=== PATIENT | female | born 1955 | race Caucasian/White ===

== ENCOUNTER 2022-04-01 08:46 | Inpatient (IN) | payer BC ==
[2022-04-01] VITALS (21 sets, daily range): BP systolic 124–227; BP diastolic 62–103
[~2022-04-01] VITALS: Ht 162.6 cm; Wt 63.6 kg
[2022-04-01 12:04] LABS: BASOPHILS % (AUTO) 0.1 % (0-1); EOSINOPHILS # (AUTO) 0.1 X10'3 (0-0.9); EOSINOPHILS % (AUTO) 0.5 % (0-6); HEMATOCRIT 34.1 % (35.0-45.0); LYMPHOCYTES # (AUTO) 0.6 X10'3 (1.1-4.8); MEAN CORPUSCULAR HEMOGLOBIN 25.7 PG (27.0-31.0); MEAN CORPUSCULAR HGB CONC 32.2 g/dL (33.0-36.5); MEAN CORPUSCULAR VOLUME 79.8 FL (78-98); MONOCYTES # (AUTO) 1.4 X10'3 (0-0.9); MONOCYTES % (AUTO) 8.9 % (2-12); NEUTROPHILS # (AUTO) 13.2 X10'3 (1.8-7.7); NEUTROPHILS % (AUTO) 86.5 % (42-75); PLATELET COUNT 337 X10'3 (140-440); RED BLOOD COUNT 4.27 X10'6 (4.20-5.60); RED CELL DISTRIBUTION WIDTH 19.3 % (11.5-14.5); WHITE BLOOD COUNT 15.3 X10'3 (4.5-11.0)
[2022-04-01 12:13] LABS: ALANINE AMINOTRANSFERASE 12 U/L (12-78); ALBUMIN 2.5 G/DL (3.4-5.0); ALBUMIN/GLOBULIN RATIO 0.5 (1.1-1.5); ALKALINE PHOSPHATASE 138 IU/L (46-116); ANION GAP 12 (8-16); ASPARTATE AMINO TRANSFERASE 17 U/L (10-37); BILIRUBIN,TOTAL 0.6 MG/DL (0.1-1.0); BLOOD UREA NITROGEN 30 MG/DL (7-18); BUN/CREATININE RATIO 19.9 (6.6-38.0); CALCIUM 9.6 MG/DL (8.5-10.1); CHLORIDE 90 MMOL/L (99-107); CREATININE 1.51 MG/DL (0.40-0.90); GLUCOSE 107 MG/DL (70-104); SODIUM 131 MMOL/L (135-145); TOTAL CARBON DIOXIDE 28.8 MMOL/L (24-32); TOTAL PROTEIN 7.7 G/DL (6.4-8.2); eGFR 35 ML/MIN
[2022-04-01] MEDS ORDERED: potassium Cl 20 mEq SR tablet PO STA (12:20)
[2022-04-01] MEDS ORDERED: potassium Cl 10 mEq/100mL bag IV ONE (12:23)
[2022-04-01] MEDS ORDERED: normal saline 1000ML IV soln IV ONE (12:25)
[2022-04-01] MEDS ORDERED: ondansetron/PF 4mg/2ml inj IV ONE (12:25)
[2022-04-01] MEDS: morphine 4 MG/ML inj SYRINge IV PRN ×2 (13:09→17:02)
[2022-04-01 13:28] LABS: URINE HCG NEGATIVE (NEG)
[2022-04-01 13:33] LABS: COLOR,URINE YELLOW (Yellow); GLUCOSE, URINE NEGATIVE (Neg); KETONES,URINE TRACE mg/dl (Neg); LEUKOCYTE ESTERASE ,URINE NEGATIVE (Neg); NITRITES, URINE NEGATIVE (Neg); OCCULT BLOOD,URINE MODERATE (Neg); PH,URINE 5.5 (4.8-8.0); PROTEIN,URINE 30 mg/dl (Neg); UROBILINOGEN,URINE 0.2 E.U/dL (0.2-1.0)
[2022-04-01 13:35] LABS: CLARITY,URINE SLIGHTLY CLOUDY (Clear); UA COLLECTION TYPE CLN CATCH MIDSTREAM
[2022-04-01] MEDS ORDERED: piperacillin/tazo 3.375gm/50ml 50 ML IV ONE (13:35)
[2022-04-01 13:44] LABS: BACTERIA,URINE 3+ /HPF (Neg)
[2022-04-01 13:46] LABS: SQUAMOUS EPITHELIAL CELL,UR NONE SEEN /LPF (FEW)
[2022-04-01 13:47] LABS: TRANSITIONAL EPI CELLS,URINE FEW /HPF
[2022-04-01 14:07] LABS: PLATELET ESTIMATE NORMAL; TOTAL CELLS COUNTED 100
[2022-04-01 14:08] LABS: ANISOCYTOSIS 2+; MICROCYTOSIS 1+
[2022-04-01] MEDS ORDERED: labetalol 20mg/4ml (5mg/ml) syringe IV PRN (14:20)
[2022-04-01] MEDS ORDERED: fentaNYL/PF 50MCG/1 ML 2ML syringe IV PRN ×2 (14:20)
[2022-04-01] MEDS ORDERED: ondansetron/PF 4mg/2ml inj IV PRN ×2 (14:20→16:20)
[2022-04-01] MEDS ORDERED: ringers solution, lacted 1,000 ML IV SCH (14:20)
[2022-04-01] MEDS ORDERED: morphine 2 MG/ML inj. syringe IV PRN (14:20)
[2022-04-01] MEDS ORDERED: hydrALAZINE 20mg/ml inj. IV PRN (14:20)
[2022-04-01] MEDS ORDERED: ringers solution, lacted 1,000 ML IV ONE (14:20)
[2022-04-01] MEDS ORDERED: morphine 4 MG/ML inj SYRINge IV PRN (14:20)
[2022-04-01] MEDS ORDERED: BUPIVAcaine/PF 2.5 mg/ml (0.25%) 30ml vial ONE (14:24)
--- NOTE | 2022-04-01 14:27 | NUR ---
REPORT GIVEN TO SURGICAL CHARGE ELIANA. OR TECH AT BEDSIDE TO MEDICAL COLLECTOR PATIENT.
[2022-04-01] MEDS ORDERED: fentaNYL/PF 50MCG/1 ML 2ML syringe ONE ×2 (15:13→16:18)
[2022-04-01] MEDS ORDERED: sevoflurane 250ml liquid IH ONE (15:14)
[2022-04-01] MEDS ORDERED: LIDOcaine 2% (20mg/ml) 5ml vial ONE (15:16)
[2022-04-01] MEDS ORDERED: propofol inj 20 ML IV ONE (15:16)
[2022-04-01] MEDS ORDERED: rocuronium 10mg/ml inj IV ONE (15:19)
[2022-04-01] MEDS ORDERED: midazolam 1 mg/ML 2ml injection ONE (15:22)
[2022-04-01] MEDS ORDERED: dexamethasone sod phosphate 4mg/ml inj. ONE (15:29)
[2022-04-01] MEDS ORDERED: glycopyrrolate 0.2mg/ml inj ONE (15:31)
[2022-04-01] MEDS ORDERED: neostigmine methylsulfate 1 MG/ML 10ml vial ONE (15:31)
[2022-04-01] MEDS ORDERED: ondansetron/PF 4mg/2ml inj ONE (15:31)
[2022-04-01] MEDS ORDERED: potassium CL 10mEq/100ml bag 100 ML IV PRN (16:20)
[2022-04-01] MEDS ORDERED: acetaminophen 650mg rectal suppository RC PRN (16:20)
[2022-04-01] MEDS ORDERED: magnesium 2GM in 50ml NS 50 ML IV PRN (16:20)
[2022-04-01] MEDS ORDERED: HYDROmorphone inj. 0.5 MG/0.5 ML DISP.SYRIN IV PRN (16:20)
[2022-04-01] MEDS ORDERED: HYDROmorphone/PF 0.2 MG/ML SYRINGE IV PRN (16:20)
[2022-04-01] MEDS ORDERED: magnesium hydroxide 30ml (MOM) UD suspension PO PRN (16:20)
[2022-04-01] MEDS ORDERED: mag hydrox/Alum hydrox/simeth 30ml oral suspension PO PRN (16:20)
[2022-04-01] MEDS ORDERED: bisacodyl 10mg suppository rectal RC PRN (16:20)
[2022-04-01] MEDS ORDERED: ondansetron 4mg rapidly disintigrating tab PO PRN (16:20)
[2022-04-01] MEDS ORDERED: magnesium 4gm in 100ml NS 100 ML IV PRN (16:20)
[2022-04-01] MEDS ORDERED: POTASSIUM BICARB 20meq eff tab 20 MEQ TABLET.EFF PO PRN (16:20)
[2022-04-01] MEDS ORDERED: acetaminophen 325mg tablet PO PRN ×2 (16:20)
[2022-04-01] MEDS ORDERED: magnesium Cl slow-release 64mg tablet PO PRN (16:20)
[2022-04-01] MEDS ORDERED: HYDROcodone/acetaminophen 5mg/325mg tablet PO PRN (16:20)
[2022-04-01 16:51] LABS: MAGNESIUM 2.7 MG/DL (1.5-2.4)
--- NOTE | 2022-04-01 16:57 | NUR ---
Received from OR via HOSPITAL BED, accompanied by Anesthesiologist and report given by GENARO Anesthesiologist. PATIENT WAKING UP, ABDOMEN PAIN OF 7/10 NOTED-WILL MEDICATE, INCREASED BP AND HR, SCD ON , PIV 20G RAC, STERISTRIPS AND ISLAND DRESSING C/D/I TO ABDOMEN. KEVIN DRAINING SEROSANGUINEOUS FLUID. Addendum: 04/01/22 at 1746 by Cj Ruby RN Amended: Links added.
[2022-04-01] MEDS: normal saline 1000ml 1,000 ML IV SCH (18:20)
--- NOTE | 2022-04-01 18:57 | NUR ---
PATIENT HAS MET ALL CRITERIA FOR TRANSFER TO ORTHO FLOOR. VSS. DRESSINGS INTACT. BED LOW, CALL LIGHT PRESENT AND 2 RAILS UP. RN PRESENT TO ACCEPT CARE OF PATIENT AND REPORT HAS BEEN CALLED. ALL QUESTIONS ANSWERED TO ACCEPTING RN. Addendum: 04/01/22 at 1902 by Cj Ruby RN Amended: Links added.
[2022-04-01] MEDS: docusate sod 100mg capsule PO SCH (20:00)
[2022-04-01] MEDS ORDERED: temazepam 15mg capsule PO PRN (21:00)
[2022-04-01] MEDS: K and/or MAG REPLACEMENT MC SCH (21:12)
[2022-04-01] MEDS: piperacillin/tazo 3.375gm/50ml 50 ML IV SCH (23:26)
[2022-04-02] MEDS: HYDROcodone/acetaminophen 10/325mg tab PO PRN ×4 (01:48→21:45)
[2022-04-02 02:00] VITALS: BP 176/72
[2022-04-02] MEDS ORDERED: NO HOME MEDS (02:46)
[2022-04-02 06:00] VITALS: BP 141/79
[2022-04-02 06:08] LABS: BASOPHILS % (AUTO) 0 % (0-1); EOSINOPHILS % (AUTO) 0.5 % (0-6); HEMATOCRIT 29.4 % (35.0-45.0); HEMOGLOBIN 9.7 g/dl (12.0-16.0); LYMPHOCYTES # (AUTO) 0.3 X10'3 (1.1-4.8); LYMPHOCYTES % (AUTO) 3.8 % (21-51); MEAN CORPUSCULAR HEMOGLOBIN 26.2 PG (27.0-31.0); MEAN CORPUSCULAR HGB CONC 32.8 g/dL (33.0-36.5); MEAN CORPUSCULAR VOLUME 79.7 FL (78-98); MEAN PLATELET VOLUME 7.7 FL (7.4-10.4); NEUTROPHILS # (AUTO) 7.5 X10'3 (1.8-7.7); NEUTROPHILS % (AUTO) 84.7 % (42-75); PLATELET COUNT 330 X10'3 (140-440); RED BLOOD COUNT 3.69 X10'6 (4.20-5.60); RED CELL DISTRIBUTION WIDTH 19.6 % (11.5-14.5); WHITE BLOOD COUNT 8.9 X10'3 (4.5-11.0)
[2022-04-02 06:13] LABS: ALANINE AMINOTRANSFERASE 11 U/L (12-78); ALBUMIN 1.9 G/DL (3.4-5.0); ALBUMIN/GLOBULIN RATIO 0.4 (1.1-1.5); ALKALINE PHOSPHATASE 111 IU/L (46-116); ANION GAP 9 (8-16); ASPARTATE AMINO TRANSFERASE 12 U/L (10-37); BILIRUBIN,TOTAL 0.5 MG/DL (0.1-1.0); BLOOD UREA NITROGEN 20 MG/DL (7-18); BUN/CREATININE RATIO 16.5 (6.6-38.0); CALCIUM 8.5 MG/DL (8.5-10.1); CHLORIDE 100 MMOL/L (99-107); CREATININE 1.21 MG/DL (0.40-0.90); GLUCOSE 134 MG/DL (70-104); MAGNESIUM 2.1 MG/DL (1.5-2.4); POTASSIUM 3.7 MMOL/L (3.5-5.1); SODIUM 137 MMOL/L (135-145); TOTAL CARBON DIOXIDE 28.2 MMOL/L (24-32); TOTAL PROTEIN 6.3 G/DL (6.4-8.2); eGFR 45 ML/MIN
--- NOTE | 2022-04-02 06:23 | NUR ---
Patient in room ORTHO 4024. I have received report from SHAYNE Garrido and had the opportunity to ask questions and assume patient care.
[2022-04-02] MEDS: K and/or MAG REPLACEMENT MC SCH ×2 (07:47→21:06)
[2022-04-02] MEDS: docusate sod 100mg capsule PO SCH ×2 (07:49→19:41)
[2022-04-02] MEDS: normal saline 1000ml 1,000 ML IV SCH ×2 (07:49→12:20)
[2022-04-02] MEDS: piperacillin/tazo 3.375gm/50ml 50 ML IV SCH ×2 (07:49→16:16)
[2022-04-02 10:00] VITALS: BP 142/80
[2022-04-02 18:00] VITALS: BP 162/72
--- NOTE | 2022-04-02 18:00 | NUR ---
Patient in room ORTHO 4024. I have received report from SHAYNE Parker and had the opportunity to ask questions and assume patient care.
--- NOTE | 2022-04-02 18:48 | NUR ---
Problems reprioritized. Patient report given, questions answered & plan of care reviewed with SHAYNE Beavers.
[2022-04-02] MEDS: enoxaparin 40mg/0.4ml syringe SUBCUT SCH (19:42)
[2022-04-02 22:00] VITALS: BP 176/81
[2022-04-03] MEDS: normal saline 1000ml 1,000 ML IV SCH ×2 (00:40→08:25)
[2022-04-03] MEDS: piperacillin/tazo 3.375gm/50ml 50 ML IV SCH ×4 (00:41→23:56)
[2022-04-03 05:53] LABS: BASOPHILS % (AUTO) 0.1 % (0-1); EOSINOPHILS % (AUTO) 0.1 % (0-6); HEMATOCRIT 28.4 % (35.0-45.0); HEMOGLOBIN 9.2 g/dl (12.0-16.0); LYMPHOCYTES # (AUTO) 1.1 X10'3 (1.1-4.8); LYMPHOCYTES % (AUTO) 9.4 % (21-51); MEAN CORPUSCULAR HEMOGLOBIN 25.8 PG (27.0-31.0); MEAN CORPUSCULAR HGB CONC 32.2 g/dL (33.0-36.5); MEAN CORPUSCULAR VOLUME 79.9 FL (78-98); MEAN PLATELET VOLUME 7.3 FL (7.4-10.4); MONOCYTES # (AUTO) 1.4 X10'3 (0-0.9); NEUTROPHILS # (AUTO) 9.4 X10'3 (1.8-7.7); NEUTROPHILS % (AUTO) 78.4 % (42-75); PLATELET COUNT 392 X10'3 (140-440); RED BLOOD COUNT 3.56 X10'6 (4.20-5.60); RED CELL DISTRIBUTION WIDTH 19.8 % (11.5-14.5)
[2022-04-03 06:00] VITALS: BP 184/90
[2022-04-03 06:07] LABS: ALANINE AMINOTRANSFERASE 10 U/L (12-78); ALBUMIN 1.8 G/DL (3.4-5.0); ALBUMIN/GLOBULIN RATIO 0.4 (1.1-1.5); ALKALINE PHOSPHATASE 100 IU/L (46-116); ANION GAP 5 (8-16); ASPARTATE AMINO TRANSFERASE 15 U/L (10-37); BILIRUBIN,TOTAL 0.3 MG/DL (0.1-1.0); BLOOD UREA NITROGEN 20 MG/DL (7-18); BUN/CREATININE RATIO 18.7 (6.6-38.0); CALCIUM 8.3 MG/DL (8.5-10.1); CHLORIDE 101 MMOL/L (99-107); CREATININE 1.07 MG/DL (0.40-0.90); GLUCOSE 113 MG/DL (70-104); MAGNESIUM 2.4 MG/DL (1.5-2.4); POTASSIUM 3.2 MMOL/L (3.5-5.1); SODIUM 139 MMOL/L (135-145); TOTAL CARBON DIOXIDE 32.8 MMOL/L (24-32); TOTAL PROTEIN 6.1 G/DL (6.4-8.2); eGFR 52 ML/MIN
--- NOTE | 2022-04-03 06:22 | NUR ---
Problems reprioritized. Patient report given, questions answered & plan of care reviewed with SHAYNE Reinoso.
--- NOTE | 2022-04-03 06:37 | NUR ---
Patient in room ORTHO 4024. I have received report from SHAYNE Beavers and had the opportunity to ask questions and assume patient care.
[2022-04-03] MEDS: K and/or MAG REPLACEMENT MC SCH ×2 (08:00→20:00)
[2022-04-03] MEDS: docusate sod 100mg capsule PO SCH ×2 (08:23→21:24)
[2022-04-03] MEDS: POTASSIUM BICARB 20meq eff tab 20 MEQ TABLET.EFF PO PRN ×2 (08:24→12:46)
[2022-04-03 10:00] VITALS: BP 164/86
[2022-04-03] MEDS: hydrALAZINE 20mg/ml inj. IV PRN ×2 (11:11→17:07)
[2022-04-03] MEDS: HYDROcodone/acetaminophen 10/325mg tab PO PRN (15:05)
--- NOTE | 2022-04-03 17:25 | NUR ---
Notified Dr. Lam of high BP. Dr. Lam said SBP 160-170 is OK.
--- NOTE | 2022-04-03 17:30 | NUR ---
PAGER ID: [phone] MESSAGE: Caroline [id number] RE: Alena Walters room 4024A - BP still elevated after first dose of hydralazine. Gave another dose of hydralazine
[2022-04-03] MEDS ORDERED: amLODIPine 5mg tablet PO ONE (17:40)
[2022-04-03 18:00] VITALS: BP 168/82
--- NOTE | 2022-04-03 18:40 | NUR ---
Problems reprioritized. Patient report given, questions answered & plan of care reviewed with SHAYNE Bolanos.
[2022-04-03] MEDS: enoxaparin 40mg/0.4ml syringe SUBCUT SCH (21:27)
[2022-04-03 22:00] VITALS: BP_SYST 156; BP_SYST 177; BP_DIAS 78; BP_DIAS 85
[2022-04-04] MEDS: hydrALAZINE 20mg/ml inj. IV PRN (05:18)
[2022-04-04] MEDS: normal saline 1000ml 1,000 ML IV SCH ×2 (06:00→11:51)
[2022-04-04 06:44] LABS: BASOPHILS % (AUTO) 0.1 % (0-1); EOSINOPHILS % (AUTO) 0.2 % (0-6); HEMATOCRIT 27.5 % (35.0-45.0); HEMOGLOBIN 8.7 g/dl (12.0-16.0); LYMPHOCYTES # (AUTO) 1.2 X10'3 (1.1-4.8); LYMPHOCYTES % (AUTO) 10.2 % (21-51); MEAN CORPUSCULAR HEMOGLOBIN 25.3 PG (27.0-31.0); MEAN CORPUSCULAR HGB CONC 31.6 g/dL (33.0-36.5); MEAN CORPUSCULAR VOLUME 80.2 FL (78-98); MEAN PLATELET VOLUME 7.4 FL (7.4-10.4); MONOCYTES # (AUTO) 1.5 X10'3 (0-0.9); MONOCYTES % (AUTO) 12.5 % (2-12); PLATELET COUNT 443 X10'3 (140-440); RED BLOOD COUNT 3.43 X10'6 (4.20-5.60); RED CELL DISTRIBUTION WIDTH 19.8 % (11.5-14.5); WHITE BLOOD COUNT 11.6 X10'3 (4.5-11.0)
--- NOTE | 2022-04-04 06:52 | NUR ---
Problems reprioritized. Patient report given, questions answered & plan of care reviewed with JESSICA BELLA.
--- NOTE | 2022-04-04 06:56 | NUR ---
Patient in room ORTHO 4024. I have received report from SHAYNE Bolanos and had the opportunity to ask questions and assume patient care.
[2022-04-04 06:57] VITALS: BP 178/83
[2022-04-04 07:03] LABS: ALANINE AMINOTRANSFERASE 10 U/L (12-78); ALBUMIN 1.6 G/DL (3.4-5.0); ALBUMIN/GLOBULIN RATIO 0.4 (1.1-1.5); ANION GAP 7 (8-16); ASPARTATE AMINO TRANSFERASE 15 U/L (10-37); BILIRUBIN,TOTAL 0.3 MG/DL (0.1-1.0); BLOOD UREA NITROGEN 11 MG/DL (7-18); BUN/CREATININE RATIO 13.9 (6.6-38.0); CALCIUM 8.3 MG/DL (8.5-10.1); CHLORIDE 104 MMOL/L (99-107); CREATININE 0.79 MG/DL (0.40-0.90); GLUCOSE 101 MG/DL (70-104); MAGNESIUM 1.9 MG/DL (1.5-2.4); POTASSIUM 3.6 MMOL/L (3.5-5.1); SODIUM 140 MMOL/L (135-145); TOTAL CARBON DIOXIDE 28.8 MMOL/L (24-32); TOTAL PROTEIN 5.6 G/DL (6.4-8.2); eGFR 73 ML/MIN
[2022-04-04 07:18] LABS: ALKALINE PHOSPHATASE 117 IU/L (46-116)
[2022-04-04] MEDS: piperacillin/tazo 3.375gm/50ml 50 ML IV SCH ×3 (07:23→23:47)
[2022-04-04] MEDS: amLODIPine 5mg tablet PO SCH (07:34)
[2022-04-04] MEDS: docusate sod 100mg capsule PO SCH ×2 (07:36→20:00)
[2022-04-04] MEDS: K and/or MAG REPLACEMENT MC SCH ×2 (07:39→20:00)
[2022-04-04 09:39] LABS: ANISOCYTOSIS 2+; HYPOCHROMASIA 1+; MICROCYTOSIS FEW; PLATELET ESTIMATE NORMAL
[2022-04-04 09:40] LABS: STOMATOCYTES FEW
[2022-04-04 10:00] VITALS: BP 168/83
[2022-04-04] MEDS: lisinopril 20mg tablet PO SCH (13:02)
--- NOTE | 2022-04-04 14:39 | NUR ---
Student Medication Administration: IV started on left FA with 20 ga x 1 attempt good blood return obtained. Site blew when flushed with NS DC. Second attempt on left hand with 20 ga good blood return obtained. Site blew distal to insertion site when flushed with NS. Third attempt right hand with 22 ga unsuccessful. Primary care RN notified. Removed infiltrated IV on right AC canula intact. Patient tolerated all procedures well w/out complaint. Student RN Cici Cm with instructor Taras Garcia RN.
--- NOTE | 2022-04-04 18:17 | NUR ---
Problems reprioritized. Patient report given, questions answered & plan of care reviewed with SHAYNE Bolanos.
--- NOTE | 2022-04-04 19:04 | NUR ---
Patient in room ORTHO 4024. I have received report from JESSICA BELLA and had the opportunity to ask questions and assume patient care.
[2022-04-04] MEDS: HYDROcodone/acetaminophen 10/325mg tab PO PRN (21:00)
[2022-04-04] MEDS: enoxaparin 40mg/0.4ml syringe SUBCUT SCH (21:01)
[2022-04-05 06:00] VITALS: BP 172/81
--- NOTE | 2022-04-05 06:30 | NUR ---
RECEIVED REPORT FROM SHAYNE FLOREZ
[2022-04-05 06:31] LABS: BASOPHILS % (AUTO) 0.2 % (0-1); EOSINOPHILS # (AUTO) 0.1 X10'3 (0-0.9); EOSINOPHILS % (AUTO) 0.5 % (0-6); HEMATOCRIT 27.3 % (35.0-45.0); LYMPHOCYTES # (AUTO) 1.3 X10'3 (1.1-4.8); LYMPHOCYTES % (AUTO) 9.9 % (21-51); MEAN CORPUSCULAR HGB CONC 33.1 g/dL (33.0-36.5); MEAN CORPUSCULAR VOLUME 78.5 FL (78-98); MONOCYTES # (AUTO) 1.5 X10'3 (0-0.9); MONOCYTES % (AUTO) 11.6 % (2-12); NEUTROPHILS % (AUTO) 77.8 % (42-75); PLATELET COUNT 503 X10'3 (140-440); RED BLOOD COUNT 3.47 X10'6 (4.20-5.60); RED CELL DISTRIBUTION WIDTH 19.8 % (11.5-14.5); WHITE BLOOD COUNT 12.9 X10'3 (4.5-11.0)
--- NOTE | 2022-04-05 06:31 | NUR ---
Problems reprioritized. Patient report given, questions answered & plan of care reviewed with NAYAN BELLA.
[2022-04-05 06:43] LABS: ALANINE AMINOTRANSFERASE 9 U/L (12-78); ALBUMIN 1.7 G/DL (3.4-5.0); ALBUMIN/GLOBULIN RATIO 0.4 (1.1-1.5); ALKALINE PHOSPHATASE 121 IU/L (46-116); ANION GAP 8 (8-16); ASPARTATE AMINO TRANSFERASE 14 U/L (10-37); BILIRUBIN,TOTAL 0.4 MG/DL (0.1-1.0); BLOOD UREA NITROGEN 8 MG/DL (7-18); BUN/CREATININE RATIO 9.3 (6.6-38.0); CALCIUM 8.5 MG/DL (8.5-10.1); CHLORIDE 102 MMOL/L (99-107); CHOLESTEROL 144 MG/DL (0-200); CREATININE 0.86 MG/DL (0.40-0.90); GLUCOSE 97 MG/DL (70-104); HDL CHOLESTEROL 36 MG/DL (35-60); LDL CHOLESTEROL 87 MG/DL (50-100); MAGNESIUM 1.6 MG/DL (1.5-2.4); POTASSIUM 3.8 MMOL/L (3.5-5.1); SODIUM 139 MMOL/L (135-145); TOTAL PROTEIN 5.8 G/DL (6.4-8.2); TRIGLYCERIDES 98 MG/DL (20-135); eGFR 66 ML/MIN
[2022-04-05] MEDS: lisinopril 20mg tablet PO SCH (07:21)
[2022-04-05] MEDS: docusate sod 100mg capsule PO SCH ×2 (07:21→20:54)
[2022-04-05] MEDS: amLODIPine 5mg tablet PO SCH (07:22)
[2022-04-05] MEDS: piperacillin/tazo 3.375gm/50ml 50 ML IV SCH ×2 (07:22→16:08)
[2022-04-05] MEDS: K and/or MAG REPLACEMENT MC SCH ×2 (07:32→20:00)
[2022-04-05 10:00] VITALS: BP 153/80
--- NOTE | 2022-04-05 11:39 | NUR ---
PT AMBULATED 300FT W/VISITOR, PT IS INDEPENDENT W/FWW
[2022-04-05 18:00] VITALS: BP 159/73
[2022-04-05] MEDS: enoxaparin 40mg/0.4ml syringe SUBCUT SCH (20:55)
[2022-04-05 22:00] VITALS: BP 169/84
[2022-04-06] MEDS: piperacillin/tazo 3.375gm/50ml 50 ML IV SCH ×2 (00:36→09:44)
--- NOTE | 2022-04-06 02:25 | NUR ---
Patient was discharged today by . P Addendum: 04/06/22 at 1542 by Brynnphil Leon LVN Addendum: Patient dicharged today by . Helped patient get dressed and gather all belongings. Verbally spoke with Dr. Lam and he wants patient to make an appointment within 1 week to be seen in office. Patient was D/C'd with KEVIN patterson and Dr. Lam will remove in office. D/C paperwork was explained to Patient and , paper copy of tiffanie was given. Patient left in private vehicle with , stable and alert.
[2022-04-06 05:57] LABS: HEMOGLOBIN 9.3 g/dl (12.0-16.0); WHITE BLOOD COUNT 11.8 X10'3 (4.5-11.0)
[2022-04-06 06:00] VITALS: BP 145/80
[2022-04-06 06:00] LABS: BASOPHILS % (AUTO) 0.2 % (0-1); EOSINOPHILS # (AUTO) 0.1 X10'3 (0-0.9); EOSINOPHILS % (AUTO) 0.5 % (0-6); HEMATOCRIT 29.1 % (35.0-45.0); LYMPHOCYTES # (AUTO) 1.1 X10'3 (1.1-4.8); LYMPHOCYTES % (AUTO) 9.5 % (21-51); MEAN CORPUSCULAR HEMOGLOBIN 25.4 PG (27.0-31.0); MEAN CORPUSCULAR VOLUME 79.3 FL (78-98); MONOCYTES # (AUTO) 1.2 X10'3 (0-0.9); MONOCYTES % (AUTO) 10.2 % (2-12); NEUTROPHILS # (AUTO) 9.4 X10'3 (1.8-7.7); NEUTROPHILS % (AUTO) 79.6 % (42-75); PLATELET COUNT 574 X10'3 (140-440); RED BLOOD COUNT 3.67 X10'6 (4.20-5.60); RED CELL DISTRIBUTION WIDTH 20.1 % (11.5-14.5)
[2022-04-06 06:17] LABS: ALANINE AMINOTRANSFERASE 10 U/L (12-78); ALBUMIN 1.8 G/DL (3.4-5.0); ALBUMIN/GLOBULIN RATIO 0.4 (1.1-1.5); ALKALINE PHOSPHATASE 145 IU/L (46-116); ANION GAP 12 (8-16); ASPARTATE AMINO TRANSFERASE 16 U/L (10-37); BILIRUBIN,TOTAL 0.4 MG/DL (0.1-1.0); BLOOD UREA NITROGEN 5 MG/DL (7-18); BUN/CREATININE RATIO 6.5 (6.6-38.0); CALCIUM 8.5 MG/DL (8.5-10.1); CHLORIDE 104 MMOL/L (99-107); CREATININE 0.77 MG/DL (0.40-0.90); GLUCOSE 112 MG/DL (70-104); POTASSIUM 3.3 MMOL/L (3.5-5.1); SODIUM 142 MMOL/L (135-145); TOTAL CARBON DIOXIDE 26.3 MMOL/L (24-32); TOTAL PROTEIN 6.1 G/DL (6.4-8.2); eGFR 75 ML/MIN
--- NOTE | 2022-04-06 06:35 | NUR ---
Patient in room ORTHO 4024. I have received report from Cici BELLA and had the opportunity to ask questions and assume patient care.
--- NOTE | 2022-04-06 06:40 | NUR ---
Problems reprioritized. Patient report given, questions answered & plan of care reviewed with BEENA BELLA.
[2022-04-06] MEDS: K and/or MAG REPLACEMENT MC SCH (08:00)
[2022-04-06] MEDS: docusate sod 100mg capsule PO SCH (08:05)
[2022-04-06] MEDS: lisinopril 20mg tablet PO SCH (08:07)
[2022-04-06] MEDS: amLODIPine 5mg tablet PO SCH (08:08)
[2022-04-06] MEDS ORDERED: potassium Cl 20 mEq SR tablet PO PRN ×2 (08:55)
--- NOTE | 2022-04-06 09:55 | NUR ---
Initial: Pt admitted w/ acute appendicitis w/ perforation, underwent laparoscopic appendectomy this admit per EMR. Currently on Regular diet w/ mostly 0-25% of meals not meeting needs. Discussed w/ pt who state she normally doesn't have a big appetite. Pt is agreeable to shakes/smoothies TID w/ meals and soup WL. LBM 04/05 receiving routine colace. Will continue to monitor. Recs: 1. Continue Regular diet as tolerated 2. Smoothies WB, shakes BIDBD, soups WL 3. Bowel care per rx 4. Scaled wts Addendum: 04/06/22 at [address] Amended: Links added.
[2022-04-06 10:00] VITALS: BP 172/89
[2022-04-06 10:15] VITALS: BP 165/80
[2022-04-06 10:45] VITALS: BP 151/85
--- NOTE | 2022-04-06 11:13 | NUR ---
I have reviewed [facility] ENGINEERING SPECIALIST TECHNICIAN assessment and agree with it.
[2022-04-06 11:20] VITALS: BP_SYST 172
[2022-04-06] MEDS: hydrALAZINE 20mg/ml inj. IV PRN (11:20)
--- NOTE | 2022-04-06 12:27 | NUR ---
as instructor, i reviewed student nurse charting
[2022-04-06] MEDS ORDERED: NOR5T PO (12:38)
[2022-04-06] MEDS ORDERED: LISI20TA28 PO (12:38)
[2022-04-06] MEDS ORDERED: HYDR-3965 PO (12:38)
[2022-04-06] MEDS ORDERED: AMOX-117 PO (12:38)
--- NOTE | 2022-04-06 13:24 | NUR ---
Called Dr. Lam about D/C. He spoke with Dr. Bower and is in agreement for D/C. Ok by Dr. Lam to take the KEVIN drain out and patient is to call the office for an appointment.
[2022-04-06] MEDS: HYDROcodone/acetaminophen 10/325mg tab PO PRN (14:53)
== END 2022-04-06 14:55 | disposition home or self-care (01) | DRG 338 ==
LOC: ER 08:46 → PAS IN 16:22 → ORTHO 4S 19:15
PROVIDERS: ADMIT Family Medicine; ATTEND Family Medicine
PROC: 0D9W4ZZ Drainage of Peritoneum, Percutaneous Endoscopic Approach (ICD-10-PCS; 2022-04-01)
PROC: 0DTJ4ZZ Resection of Appendix, Percutaneous Endoscopic Approach (ICD-10-PCS; principal; 2022-04-01 15:16)
DX: K35.33 Acute appendicitis with perforation, localized peritonitis, and gangrene, with abscess (principal); N17.0 Acute kidney failure with tubular necrosis; E87.1 Hypo-osmolality and hyponatremia; K92.1 Melena; Z20.822 Contact with and (suspected) exposure to COVID-19; D72.829 Elevated white blood cell count, unspecified; I12.9 Hypertensive chronic kidney disease with stage 1 through stage 4 chronic kidney disease, or unspecified chronic kidney disease; N18.9 Chronic kidney disease, unspecified; E83.41 Hypermagnesemia; E87.6 Hypokalemia; E88.09 Other disorders of plasma-protein metabolism, not elsewhere classified; K59.00 Constipation, unspecified
CPT/HCPCS: 96374; 99285; Z7506; Z7508; 36415; 71045; 74176; 80053; 80061; 81001; 81025; 83605; 83735; 84443; 85007; 85008; 85025; 85610; 87040; 87081; 87088; 87811; 93005; A4215; A4615; A4618; A6258; A6402; A6449; A7000; G0378; J0360; J1100; J1650; J2250; J2270; J2405; J2543; J2704; J2710; J3010; J3480; J3490; J7030; J7120

== ENCOUNTER 2022-06-17 14:54 | Inpatient (IN) | payer BC ==
[~2022-06-17] VITALS: Ht 160 cm; Wt 65.9 kg
[~2022-06-17 14:54] MED LIST: LISI20TA28 PO; NOR5T PO
[2022-06-17 17:29] LABS: BASOPHILS % (AUTO) 0.5 % (0-1); EOSINOPHILS # (AUTO) 0.1 X10'3 (0-0.9); EOSINOPHILS % (AUTO) 1.2 % (0-6); HEMATOCRIT 24.2 % (35.0-45.0); HEMOGLOBIN 7.1 g/dl (12.0-16.0); LYMPHOCYTES # (AUTO) 2.6 X10'3 (1.1-4.8); LYMPHOCYTES % (AUTO) 30.6 % (21-51); MEAN CORPUSCULAR HEMOGLOBIN 19.6 PG (27.0-31.0); MEAN CORPUSCULAR HGB CONC 29.4 g/dL (33.0-36.5); MEAN CORPUSCULAR VOLUME 66.7 FL (78-98); MEAN PLATELET VOLUME 7.6 FL (7.4-10.4); MONOCYTES # (AUTO) 0.5 X10'3 (0-0.9); MONOCYTES % (AUTO) 5.8 % (2-12); NEUTROPHILS # (AUTO) 5.2 X10'3 (1.8-7.7); NEUTROPHILS % (AUTO) 61.9 % (42-75); PLATELET COUNT 398 X10'3 (140-440); RED BLOOD COUNT 3.63 X10'6 (4.20-5.60); RED CELL DISTRIBUTION WIDTH 20.4 % (11.5-14.5); WHITE BLOOD COUNT 8.4 X10'3 (4.5-11.0)
[2022-06-17 17:35] LABS: ALANINE AMINOTRANSFERASE 19 U/L (12-78); ALKALINE PHOSPHATASE 116 IU/L (46-116); ANION GAP 15 (8-16); ASPARTATE AMINO TRANSFERASE 15 U/L (10-37); BILIRUBIN,TOTAL 0.3 MG/DL (0.1-1.0); BLOOD UREA NITROGEN 18 MG/DL (7-18); BUN/CREATININE RATIO 17.3 (6.6-38.0); CALCIUM 8.8 MG/DL (8.5-10.1); CHLORIDE 104 MMOL/L (99-107); CREATININE 1.04 MG/DL (0.40-0.90); GLUCOSE 104 MG/DL (70-104); POTASSIUM 3.8 MMOL/L (3.5-5.1); SODIUM 141 MMOL/L (135-145); TOTAL CARBON DIOXIDE 22.5 MMOL/L (24-32); eGFR 53 ML/MIN
[2022-06-17 17:57] LABS: ANISOCYTOSIS 3+; HYPOCHROMASIA 3+; MICROCYTOSIS 2+; PLATELET ESTIMATE NORMAL
[2022-06-17 17:58] LABS: ELLIPTOCYTES FEW; TARGET CELLS FEW
[2022-06-17 17:59] LABS: POIKILOCYTOSIS FEW; TEAR DROP CELLS FEW
--- NOTE | 2022-06-17 19:00 | NUR ---
I agree with A Karis Nava assessment.
[2022-06-17] MEDS ORDERED: pantoprazole 40mg IV 80 MG in normal saline 100ml IV soln 100 ML IV ONE (19:20)
[2022-06-17] MEDS ORDERED: iohexol 300mg/ml 100ml inj. ONE (19:36)
[2022-06-17 20:06] LABS: APTT 24 SECONDS (22-32)
[2022-06-17] MEDS ORDERED: acetaminophen 325mg tablet PO PRN (22:40)
[2022-06-17] MEDS ORDERED: ondansetron/PF 4mg/2ml inj IV PRN (22:40)
[2022-06-17] MEDS: normal saline 1000ml 1,000 ML IV SCH (23:03)
[2022-06-17] MEDS ORDERED: iron sucrose complex injection 200 MG in normal saline 100ml IV soln 100 ML IV SCH (23:30)
[2022-06-18] VITALS (12 sets, daily range): BP systolic 100–157; BP diastolic 47–77
--- NOTE | 2022-06-18 07:33 | NUR ---
received report from Julia BELLA, who had received report from ED. patient arrived, assumed care. A&O x4 will review orders
[2022-06-18 07:55] LABS: BASOPHILS % (AUTO) 0.7 % (0-1); EOSINOPHILS # (AUTO) 0.1 X10'3 (0-0.9); EOSINOPHILS % (AUTO) 2.4 % (0-6); LYMPHOCYTES # (AUTO) 1.4 X10'3 (1.1-4.8); LYMPHOCYTES % (AUTO) 23.8 % (21-51); MEAN CORPUSCULAR HEMOGLOBIN 19.3 PG (27.0-31.0); MEAN CORPUSCULAR VOLUME 66.8 FL (78-98); MEAN PLATELET VOLUME 7.1 FL (7.4-10.4); MONOCYTES # (AUTO) 0.6 X10'3 (0-0.9); MONOCYTES % (AUTO) 10.3 % (2-12); NEUTROPHILS # (AUTO) 3.6 X10'3 (1.8-7.7); NEUTROPHILS % (AUTO) 62.8 % (42-75); PLATELET COUNT 306 X10'3 (140-440); RED BLOOD COUNT 3.21 X10'6 (4.20-5.60); RED CELL DISTRIBUTION WIDTH 20.6 % (11.5-14.5); WHITE BLOOD COUNT 5.7 X10'3 (4.5-11.0)
[2022-06-18 08:01] LABS: HEMATOCRIT 21.4 % (35.0-45.0); HEMOGLOBIN 6.2 g/dl (12.0-16.0)
[2022-06-18] MEDS: normal saline 1000ml 1,000 ML IV SCH ×3 (08:02→21:00)
[2022-06-18] MEDS: amLODIPine 5mg tablet PO SCH (08:07)
[2022-06-18 08:18] LABS: ALANINE AMINOTRANSFERASE 14 U/L (12-78); ALBUMIN 3.4 G/DL (3.4-5.0); ALBUMIN/GLOBULIN RATIO 1.1 (1.1-1.5); ALKALINE PHOSPHATASE 95 IU/L (46-116); ANION GAP 10 (8-16); ASPARTATE AMINO TRANSFERASE 18 U/L (10-37); BILIRUBIN,TOTAL 0.5 MG/DL (0.1-1.0); BLOOD UREA NITROGEN 11 MG/DL (7-18); BUN/CREATININE RATIO 14.1 (6.6-38.0); CALCIUM 8.7 MG/DL (8.5-10.1); CHLORIDE 110 MMOL/L (99-107); CREATININE 0.78 MG/DL (0.40-0.90); GLUCOSE 98 MG/DL (70-104); POTASSIUM 3.8 MMOL/L (3.5-5.1); SODIUM 144 MMOL/L (135-145); TOTAL CARBON DIOXIDE 24.4 MMOL/L (24-32); TOTAL PROTEIN 6.5 G/DL (6.4-8.2); eGFR 74 ML/MIN
[2022-06-18 08:30] LABS: TOTAL CELLS COUNTED 100
[2022-06-18 08:31] LABS: ANISOCYTOSIS 3+; HYPOCHROMASIA 3+; MICROCYTOSIS 2+; PLATELET ESTIMATE NORMAL; TEAR DROP CELLS FEW
[2022-06-18 08:32] LABS: ELLIPTOCYTES FEW; LARGE PLATELETS MODERATE
[2022-06-18] MEDS ORDERED: LIDOcaine Viscous 15ml cup ONE (14:52)
[2022-06-18] MEDS ORDERED: MIDAZolam 1 MG/ML 5ML VIAL ONE (14:52)
[2022-06-18] MEDS ORDERED: FENTANYL CITRATE/PF 50 MCG/1 ML VIAL ONE (15:45)
[2022-06-18] MEDS ORDERED: PEG 3350/Na sulf,bicarb,Cl/KCl oral sol 4 liter bottle PO ONE (16:20)
--- NOTE | 2022-06-18 18:00 | NUR ---
Found patient was returned from EGD for undetermined amount of time, no report given, not connected to IV fluids, no postop VS started and no call light in reach. initiated IV fluids, adn postop VS.
--- NOTE | 2022-06-18 18:15 | NUR ---
Rec'd report @ 1700 for Tim from GI Lab nurse, SHAYNE Murphy that pt was returned to her bed and the EGD findings were esophagitis, GERD, and Bx was obtained, as well as a new plan is a colonoscopy 06/19. Reported to Jamie at 1800.
--- NOTE | 2022-06-18 18:20 | NUR ---
Patient in room [facility] 340. I have received report from Tim and had the opportunity to ask questions and assume patient care.
[2022-06-18] MEDS: sennosides/docusate sodium tablet PO SCH (19:43)
--- NOTE | 2022-06-18 22:39 | NUR ---
2 RN/PANTS PRESSER AUTOMATIC skin check not complete on admission. I did not admit the patient.
[2022-06-19] VITALS (9 sets, daily range): BP systolic 109–153; BP diastolic 51–81
--- NOTE | 2022-06-19 02:45 | NUR ---
REVIEWED MERCHANT MARINER ASSESSMENT AND IN AGREEMENT. CARE PLAN ADDED.
[2022-06-19 06:10] LABS: BASOPHILS % (AUTO) 0.7 % (0-1); EOSINOPHILS # (AUTO) 0.1 X10'3 (0-0.9); HEMATOCRIT 22.5 % (35.0-45.0); LYMPHOCYTES # (AUTO) 1.5 X10'3 (1.1-4.8); MEAN CORPUSCULAR HEMOGLOBIN 19.5 PG (27.0-31.0); MEAN CORPUSCULAR HGB CONC 29.3 g/dL (33.0-36.5); MEAN CORPUSCULAR VOLUME 66.8 FL (78-98); MEAN PLATELET VOLUME 7.7 FL (7.4-10.4); MONOCYTES # (AUTO) 0.5 X10'3 (0-0.9); MONOCYTES % (AUTO) 9.9 % (2-12); NEUTROPHILS # (AUTO) 2.6 X10'3 (1.8-7.7); NEUTROPHILS % (AUTO) 54.4 % (42-75); PLATELET COUNT 325 X10'3 (140-440); RED BLOOD COUNT 3.37 X10'6 (4.20-5.60); RED CELL DISTRIBUTION WIDTH 20.3 % (11.5-14.5); WHITE BLOOD COUNT 4.8 X10'3 (4.5-11.0)
[2022-06-19 06:15] LABS: HEMOGLOBIN 6.6 g/dl (12.0-16.0)
--- NOTE | 2022-06-19 06:17 | NUR ---
Problems reprioritized. Patient report given, questions answered & plan of care reviewed with Julia.
[2022-06-19 06:29] LABS: ALANINE AMINOTRANSFERASE 17 U/L (12-78); ALBUMIN 3.2 G/DL (3.4-5.0); ALKALINE PHOSPHATASE 89 IU/L (46-116); ANION GAP 8 (8-16); ASPARTATE AMINO TRANSFERASE 21 U/L (10-37); BILIRUBIN,TOTAL 0.4 MG/DL (0.1-1.0); BLOOD UREA NITROGEN 4 MG/DL (7-18); CALCIUM 8.4 MG/DL (8.5-10.1); CHLORIDE 111 MMOL/L (99-107); CREATININE 0.67 MG/DL (0.40-0.90); GLUCOSE 102 MG/DL (70-104); POTASSIUM 3.5 MMOL/L (3.5-5.1); SODIUM 144 MMOL/L (135-145); TOTAL CARBON DIOXIDE 24.9 MMOL/L (24-32); TOTAL PROTEIN 6.5 G/DL (6.4-8.2); eGFR 89 ML/MIN
[2022-06-19] MEDS ORDERED: iron dextran complex inj. 100 MG in normal saline 100ml IV soln 98 ML IV SCH (08:00)
[2022-06-19] MEDS ORDERED: EPOETIN ALFA-EPBX 20,000 UNIT/ML 1 ML MDV SQ SCH (08:00)
[2022-06-19] MEDS: sennosides/docusate sodium tablet PO SCH (08:42)
[2022-06-19] MEDS: iron dextran complex inj. 100 MG in normal saline 100ml IV soln 100 ML IV SCH (08:42)
[2022-06-19] MEDS: amLODIPine 5mg tablet PO SCH (08:42)
[2022-06-19] MEDS: normal saline 1000ml 1,000 ML IV SCH ×2 (08:51→17:35)
[2022-06-19] MEDS ORDERED: MIDAZolam 1 MG/ML 5ML VIAL ONE (13:51)
[2022-06-19] MEDS ORDERED: FENTANYL CITRATE/PF 50 MCG/1 ML VIAL ONE (13:51)
[2022-06-20 04:57] LABS: BASOPHILS % (AUTO) 0.4 % (0-1); EOSINOPHILS # (AUTO) 0.2 X10'3 (0-0.9); EOSINOPHILS % (AUTO) 2.8 % (0-6); LYMPHOCYTES # (AUTO) 1.8 X10'3 (1.1-4.8); LYMPHOCYTES % (AUTO) 30.6 % (21-51); MEAN CORPUSCULAR HEMOGLOBIN 19.8 PG (27.0-31.0); MEAN CORPUSCULAR HGB CONC 29.9 g/dL (33.0-36.5); MEAN CORPUSCULAR VOLUME 66.1 FL (78-98); MEAN PLATELET VOLUME 7.2 FL (7.4-10.4); MONOCYTES # (AUTO) 0.6 X10'3 (0-0.9); MONOCYTES % (AUTO) 10.1 % (2-12); NEUTROPHILS # (AUTO) 3.3 X10'3 (1.8-7.7); NEUTROPHILS % (AUTO) 56.1 % (42-75); PLATELET COUNT 336 X10'3 (140-440); RED CELL DISTRIBUTION WIDTH 20.1 % (11.5-14.5); WHITE BLOOD COUNT 5.9 X10'3 (4.5-11.0)
[2022-06-20 05:14] LABS: ALANINE AMINOTRANSFERASE 20 U/L (12-78); ALBUMIN 3.3 G/DL (3.4-5.0); ALKALINE PHOSPHATASE 90 IU/L (46-116); ANION GAP 11 (8-16); ASPARTATE AMINO TRANSFERASE 18 U/L (10-37); BILIRUBIN,TOTAL 0.4 MG/DL (0.1-1.0); BLOOD UREA NITROGEN 3 MG/DL (7-18); BUN/CREATININE RATIO 3.9 (6.6-38.0); CALCIUM 8.7 MG/DL (8.5-10.1); CHLORIDE 108 MMOL/L (99-107); CREATININE 0.76 MG/DL (0.40-0.90); GLUCOSE 101 MG/DL (70-104); POTASSIUM 3.3 MMOL/L (3.5-5.1); SODIUM 142 MMOL/L (135-145); TOTAL CARBON DIOXIDE 23.1 MMOL/L (24-32); TOTAL PROTEIN 6.5 G/DL (6.4-8.2); eGFR 77 ML/MIN
[2022-06-20] MEDS: normal saline 1000ml 1,000 ML IV SCH (05:20)
[2022-06-20 05:57] LABS: HEMOGLOBIN 6.5 g/dl (12.0-16.0)
[2022-06-20 05:58] LABS: HEMATOCRIT 21.8 % (35.0-45.0)
--- NOTE | 2022-06-20 06:55 | NUR ---
Patient in room [facility] 340. I have received report from Pat RN and had the opportunity to ask questions and assume patient care.
[2022-06-20 07:07] VITALS: BP 135/57
[2022-06-20 07:09] LABS: ANISOCYTOSIS 3+; ELLIPTOCYTES FEW; HYPOCHROMASIA 1+; MICROCYTOSIS 2+; PLATELET ESTIMATE NORMAL; POIKILOCYTOSIS 1+; POLYCHROMASIA 1+
[2022-06-20] MEDS: amLODIPine 5mg tablet PO SCH (08:17)
[2022-06-20] MEDS: iron dextran complex inj. 100 MG in normal saline 100ml IV soln 100 ML IV SCH (08:47)
[2022-06-20] MEDS ORDERED: FE F PO (11:25)
[2022-06-20] MEDS ORDERED: EPOETIN ALFA-EPBX 20,000 UNIT/ML 1 ML MDV SQ ONE (11:25)
[2022-06-20 12:30] VITALS: BP 147/58
--- NOTE | 2022-06-20 12:39 | NUR ---
Received Discharge orders, reviewed with patient. Patient verbalized understanding, IV removed with cannula intact. Patient escorted to lobby with belongings and spouse at 1230.
== END 2022-06-20 12:30 | disposition home or self-care (01) | DRG 375 ==
LOC: ER 14:55 → OBSVTOIN 22:44 → ED HOLD 22:44 → SUR 3N 06-18 06:59
PROVIDERS: ADMIT Internal Medicine; ATTEND Family Medicine
PROC: BW211ZZ Computerized Tomography (CT Scan) of Abdomen and Pelvis using Low Osmolar Contrast (ICD-10-PCS; 2022-06-17)
PROC: 0DB98ZX Excision of Duodenum, Via Natural or Artificial Opening Endoscopic, Diagnostic (ICD-10-PCS; principal; 2022-06-18)
PROC: 0DB68ZX Excision of Stomach, Via Natural or Artificial Opening Endoscopic, Diagnostic (ICD-10-PCS; 2022-06-18)
PROC: 0DB38ZX Excision of Lower Esophagus, Via Natural or Artificial Opening Endoscopic, Diagnostic (ICD-10-PCS; 2022-06-18)
PROC: 0DBM8ZZ Excision of Descending Colon, Via Natural or Artificial Opening Endoscopic (ICD-10-PCS; 2022-06-19)
PROC: 0DBP8ZZ Excision of Rectum, Via Natural or Artificial Opening Endoscopic (ICD-10-PCS; 2022-06-19)
PROC: 0DBN8ZX Excision of Sigmoid Colon, Via Natural or Artificial Opening Endoscopic, Diagnostic (ICD-10-PCS; 2022-06-19)
DX: C18.7 Malignant neoplasm of sigmoid colon (principal); D62 Acute posthemorrhagic anemia; K63.5 Polyp of colon; R58 Hemorrhage, not elsewhere classified; Z20.822 Contact with and (suspected) exposure to COVID-19; K21.00 Gastro-esophageal reflux disease with esophagitis, without bleeding; K62.1 Rectal polyp; I10 Essential (primary) hypertension; Z79.899 Other long term (current) drug therapy
CPT/HCPCS: 36415; 43239; 45335; 45380; 45381; 45385; 71045; 74177; 80053; 85007; 85008; 85025; 85610; 85730; 86885; 86900; 86901; 87081; 87811; 99152; 99153; 99285; A4620; C1889; C9113; G0378; J1750; J1756; J2250; J3010; J3490; J7030; Q4081; Q9967

== ENCOUNTER 2022-08-26 05:24 | Inpatient (IN) | payer BC ==
[2022-08-19 16:25] LABS: CLARITY,URINE CLEAR (Clear); COLOR,URINE YELLOW (Yellow); GLUCOSE, URINE NEGATIVE (Neg); KETONES,URINE NEGATIVE (Neg); LEUKOCYTE ESTERASE ,URINE NEGATIVE (Neg); NITRITES, URINE NEGATIVE (Neg); OCCULT BLOOD,URINE NEGATIVE (Neg); PROTEIN,URINE NEGATIVE (Neg); UROBILINOGEN,URINE 0.2 E.U/dL (0.2-1.0)
[2022-08-19 16:31] LABS: BASOPHILS % (AUTO) 0.3 % (0-1); EOSINOPHILS # (AUTO) 0.1 X10'3 (0-0.9); EOSINOPHILS % (AUTO) 2.1 % (0-6); LYMPHOCYTES % (AUTO) 31.4 % (21-51); MEAN CORPUSCULAR HEMOGLOBIN 27.4 PG (27.0-31.0); MEAN CORPUSCULAR HGB CONC 32.6 g/dL (33.0-36.5); MEAN CORPUSCULAR VOLUME 84.2 FL (78-98); MEAN PLATELET VOLUME 8.3 FL (7.4-10.4); MONOCYTES # (AUTO) 0.5 X10'3 (0-0.9); MONOCYTES % (AUTO) 8.4 % (2-12); NEUTROPHILS # (AUTO) 3.7 X10'3 (1.8-7.7); NEUTROPHILS % (AUTO) 57.8 % (42-75); PRE OP HEMATOCRIT 38.4 % (35.0-45.0); PRE OP HEMOGLOBIN 12.5 g/dL (12.0-16.0); PRE OP PLATELET COUNT 203 X10'3 (140-440); RED BLOOD COUNT 4.56 X10'6 (4.20-5.60); RED CELL DISTRIBUTION WIDTH 29.5 % (11.5-14.5)
[2022-08-19 16:32] LABS: UA COLLECTION TYPE CLN CATCH MIDSTREAM
[2022-08-19 16:41] LABS: ALBUMIN/GLOBULIN RATIO 1.1 (1.1-1.5); ALKALINE PHOSPHATASE 102 IU/L (46-116); BLOOD UREA NITROGEN 21 MG/DL (7-18); BUN/CREATININE RATIO 28.4 (6.6-38.0); CALCIUM 9.5 MG/DL (8.5-10.1); CHLORIDE 107 MMOL/L (99-107); CREATININE 0.74 MG/DL (0.40-0.90); PRE OP ALT 22 U/L (30-65); PRE OP ANION GAP 11 (8-16); PRE OP AST 18 U/L (10-37); PRE OP BILIRUB, TOTAL 0.4 MG/DL (0.0-1.0); PRE OP GLUCOSE 96 MG/DL (70-104); PRE OP POTASSIUM 3.7 MMOL/L (3.4-5.1); PRE OP SODIUM 143 MMOL/L (135-145); TOTAL CARBON DIOXIDE 25.4 MMOL/L (24-32); TOTAL PROTEIN 7.5 G/DL (6.4-8.2); eGFR 79 ML/MIN
[2022-08-19 17:41] LABS: PLATELET ESTIMATE NORMAL
[2022-08-19 17:42] LABS: ANISOCYTOSIS 3+; ELLIPTOCYTES 1+; POIKILOCYTOSIS 1+
[2022-08-26] VITALS (22 sets, daily range): BP systolic 119–152; BP diastolic 61–104
[~2022-08-26] VITALS: Ht 162.6 cm; Wt 68.0 kg
[~2022-08-26 05:24] MED LIST changes: +AMLO10TA13 PO; +DOCU-170 PO; +FE F PO; -NOR5T PO; +POTA2TAB6 PO; +ringers solution, lacted 1,000 ML IV SCH
[2022-08-26] MEDS ORDERED: ceFOXitin 2GM-NS 100mL ADDvant 100 ML IV ONE (05:30)
[2022-08-26] MEDS ORDERED: famotidine 20mg tablet PO ONE (05:30)
[2022-08-26] MEDS ORDERED: BUPIVAcaine 0.5% inj/PF 0 ML ONE (06:52)
[2022-08-26] MEDS ORDERED: midazolam 1 mg/ML 2ml injection ONE (07:22)
[2022-08-26] MEDS ORDERED: fentaNYL /PF 50mcg/ml 5ml ampule ONE (07:22)
[2022-08-26] MEDS ORDERED: BUPIVACAINE liposomal/PF 13.3 MG/ML vial IM ONE (07:29)
[2022-08-26] MEDS ORDERED: BUPIVAcaine/PF 5 mg/ml 10ml ONE (07:29)
[2022-08-26] MEDS ORDERED: iohexol 300 MG/1 ML 50ml polymer ONE (07:34)
[2022-08-26] MEDS ORDERED: sevoflurane 250ml liquid IH ONE (07:42)
[2022-08-26] MEDS ORDERED: acetaminophen 1,000mg/100ml IV 100 ML IV ONE (08:23)
[2022-08-26] MEDS ORDERED: proCHLORperazine 10 MG/2 ml inj IV PRN (09:25)
[2022-08-26] MEDS ORDERED: morphine 4 MG/ML inj SYRINge IV PRN (09:25)
[2022-08-26] MEDS ORDERED: morphine 2 MG/ML inj. syringe IV PRN (09:25)
[2022-08-26] MEDS ORDERED: ringers solution, lacted 1,000 ML IV SCH (09:25)
[2022-08-26] MEDS ORDERED: ondansetron/PF 4mg/2ml inj IV PRN ×2 (09:25→15:15)
[2022-08-26] MEDS ORDERED: meperidine/PF 25mg/ml syringe IV PRN ×3 (09:25)
[2022-08-26] MEDS ORDERED: LIDOcaine 2% (20mg/ml) 5ml vial ONE (09:55)
[2022-08-26] MEDS ORDERED: rocuronium 10mg/ml inj IV ONE (09:55)
[2022-08-26] MEDS ORDERED: propofol inj 20 ML IV ONE (09:55)
[2022-08-26] MEDS ORDERED: glycopyrrolate 0.2mg/ml inj ONE (09:56)
[2022-08-26] MEDS ORDERED: neostigmine methylsulfate 1 MG/ML 10ml vial ONE (09:56)
[2022-08-26] MEDS ORDERED: ondansetron/PF 4mg/2ml inj ONE (09:56)
[2022-08-26] MEDS ORDERED: dexamethasone sod phosphate 4mg/ml inj. ONE (09:56)
[2022-08-26] MEDS ORDERED: sugammadex 200mg/2ml injection IV ONE (10:27)
--- NOTE | 2022-08-26 10:30 | NUR ---
Received from [facility] BED TO ROOM 6 , accompanied by Anesthesiologist and report given by Anesthesiolgist. PT PRESENTS WITH 20G LEFT HAND, ABD DRESSING BANDAIDS WITH FORMA TAPE MARGARITO BAER. Addendum: 08/26/22 at 1047 by Diane Gonzalez RN, RN Amended: Links added.
[2022-08-26] MEDS ORDERED: HYDROcodone/acetaminophen 10/325mg tab PO PRN (15:15)
[2022-08-26] MEDS: normal saline 1000ml 1,000 ML IV SCH ×2 (15:15→19:51)
--- NOTE | 2022-08-26 15:50 | NUR ---
Report called to receiving nurse RYAN BELLA. Transferred via HOSPITAL BED TO ROOM 350A. BED IN LOW LOCKED POSITION WITH CALL LIGHT IN REACH. TWO BAGS WITH PT Belongings TO ROOM 350A. Special Issues communicated to receiving nurse. Addendum: 08/26/22 at 1607 by Diane Gonzalez RN RN Amended: Links added.
[2022-08-26] MEDS: amLODIPine 5mg tablet PO SCH (18:37)
--- NOTE | 2022-08-26 18:43 | NUR ---
Problems reprioritized. Patient report given, questions answered & plan of care reviewed with Thi BELLA.
[2022-08-26] MEDS: HYDROcodone/acetaminophen 5mg/325mg tablet PO PRN (19:52)
[2022-08-26] MEDS: CYANOCOBALAMIN PO SCH (19:54)
[2022-08-26] MEDS: FERROUS FUMARATE PO SCH (19:54)
[2022-08-26] MEDS: FOLIC ACID PO SCH (19:54)
[2022-08-26] MEDS: ASCORBIC ACID PO SCH (19:54)
--- NOTE | 2022-08-26 20:00 | NUR ---
urine in manrique is koolaid colored - see through. no pain reported per patient with manrique
--- NOTE | 2022-08-26 23:00 | NUR ---
urine in manrique tubing is peach colored. will continue to monitor
[2022-08-27] MEDS: HYDROcodone/acetaminophen 5mg/325mg tablet PO PRN ×5 (00:06→20:07)
[2022-08-27] MEDS: normal saline 1000ml 1,000 ML IV SCH ×2 (04:19→21:15)
--- NOTE | 2022-08-27 05:11 | NUR ---
active BS x4 quadrents. no flatus yet.
--- NOTE | 2022-08-27 05:57 | NUR ---
reported to days. noted patient's pain controlled with norco. active BS, waiting for flatus. CL diet. dressings CDI
[2022-08-27 06:00] VITALS: BP 132/54
--- NOTE | 2022-08-27 06:54 | NUR ---
Patient in room MAHESH 350. I have received report from Sakshi BELLA and had the opportunity to ask questions and assume patient care.
[2022-08-27] MEDS: FERROUS FUMARATE PO SCH ×2 (08:00→23:56)
[2022-08-27] MEDS: Potassium Gluconate 90 MG PO SCH (08:00)
[2022-08-27] MEDS: FOLIC ACID PO SCH ×2 (08:00→23:56)
[2022-08-27] MEDS: ASCORBIC ACID PO SCH ×2 (08:00→23:56)
[2022-08-27] MEDS: CYANOCOBALAMIN PO SCH ×2 (08:00→23:56)
[2022-08-27] MEDS: docusate sod 100mg capsule PO SCH (08:04)
[2022-08-27] MEDS: lisinopril 20mg tablet PO SCH (08:05)
[2022-08-27] MEDS: amLODIPine 5mg tablet PO SCH (08:07)
[2022-08-27 10:00] VITALS: BP 122/63
[2022-08-27 16:18] LABS: BASOPHILS % (AUTO) 0.1 % (0-1); EOSINOPHILS % (AUTO) 0.1 % (0-6); HEMOGLOBIN 11.8 g/dl (12.0-16.0); LYMPHOCYTES # (AUTO) 1.4 X10'3 (1.1-4.8); LYMPHOCYTES % (AUTO) 15.8 % (21-51); MEAN CORPUSCULAR HEMOGLOBIN 28.4 PG (27.0-31.0); MEAN CORPUSCULAR HGB CONC 32.9 g/dL (33.0-36.5); MEAN CORPUSCULAR VOLUME 86.2 FL (78-98); MEAN PLATELET VOLUME 8.7 FL (7.4-10.4); MONOCYTES # (AUTO) 0.8 X10'3 (0-0.9); NEUTROPHILS # (AUTO) 6.7 X10'3 (1.8-7.7); PLATELET COUNT 205 X10'3 (140-440); RED BLOOD COUNT 4.17 X10'6 (4.20-5.60); RED CELL DISTRIBUTION WIDTH 26.5 % (11.5-14.5); WHITE BLOOD COUNT 8.9 X10'3 (4.5-11.0)
[2022-08-27 16:40] LABS: ALANINE AMINOTRANSFERASE 21 U/L (12-78); ALBUMIN 3.1 G/DL (3.4-5.0); ALBUMIN/GLOBULIN RATIO 0.9 (1.1-1.5); ALKALINE PHOSPHATASE 78 IU/L (46-116); ANION GAP 10 (8-16); ASPARTATE AMINO TRANSFERASE 22 U/L (10-37); BILIRUBIN,TOTAL 0.6 MG/DL (0.1-1.0); BLOOD UREA NITROGEN 2 MG/DL (7-18); BUN/CREATININE RATIO 2.4 (6.6-38.0); CHLORIDE 109 MMOL/L (99-107); CREATININE 0.84 MG/DL (0.40-0.90); GLUCOSE 131 MG/DL (70-104); POTASSIUM 3.5 MMOL/L (3.5-5.1); SODIUM 140 MMOL/L (135-145); TOTAL CARBON DIOXIDE 21.2 MMOL/L (24-32); TOTAL PROTEIN 6.6 G/DL (6.4-8.2); eGFR 68 ML/MIN
[2022-08-27 17:38] LABS: TOTAL CELLS COUNTED 100
[2022-08-27 17:39] LABS: ANISOCYTOSIS 3+; PLATELET ESTIMATE NORMAL
[2022-08-27 17:40] LABS: ELLIPTOCYTES FEW
[2022-08-27 17:41] LABS: SPHEROCYTES FEW
[2022-08-27 17:42] LABS: MICROCYTOSIS FEW; SCHISTOCYTES FEW
[2022-08-27 17:43] LABS: HYPERSEGMENTED NEUTROPHILS FEW
[2022-08-27 18:00] VITALS: BP 133/72
--- NOTE | 2022-08-27 18:31 | NUR ---
Problems reprioritized. Patient report given, questions answered & plan of care reviewed with Sakshi BELLA.
[2022-08-27 22:00] VITALS: BP 140/71
--- NOTE | 2022-08-27 23:22 | NUR ---
reported to SHAYNE Wilson. pt has voided - pharmacy has pt's home medication ready to give. will go and slat pickler from RX.
--- NOTE | 2022-08-28 06:48 | NUR ---
Patient in room MAHESH 350. I have received report from Katie BELLA and had the opportunity to ask questions and assume patient care.
[2022-08-28 06:54] VITALS: BP 131/82
[2022-08-28 06:55] VITALS: BP 103/50
[2022-08-28 07:15] VITALS: BP 156/80
[2022-08-28] MEDS: normal saline 1000ml 1,000 ML IV SCH (07:15)
[2022-08-28] MEDS: ASCORBIC ACID PO SCH (07:28)
[2022-08-28] MEDS: FOLIC ACID PO SCH (07:28)
[2022-08-28] MEDS: FERROUS FUMARATE PO SCH (07:28)
[2022-08-28] MEDS: CYANOCOBALAMIN PO SCH (07:28)
[2022-08-28] MEDS: docusate sod 100mg capsule PO SCH (07:47)
[2022-08-28] MEDS: lisinopril 20mg tablet PO SCH (07:48)
[2022-08-28] MEDS: amLODIPine 5mg tablet PO SCH (07:48)
--- NOTE | 2022-08-28 07:50 | NUR ---
Student Medication Administration: For this medication-pass time frame, all medication were reviewed, dispensed, administered and documented per hospital policy by shay Sol Student nurse with Taras Garcia RN Instructor.
[2022-08-28] MEDS: Potassium Gluconate 90 MG PO SCH (08:00)
--- NOTE | 2022-08-28 10:29 | NUR ---
Dressing changes at 1015 and packing removed. Pt tolerated well, covered with 4x4s and occluded with paper tape by Florencia Sol Student with Taras Garcia Rn Instructor.
[2022-08-28 10:58] VITALS: BP 153/80
--- NOTE | 2022-08-28 11:57 | NUR ---
Patient discharge with and student in room. IV taken out at discharge and canula was whole and intact upon inspection. Patient left with all belongings, and discharge instructions were verbalized to patient and family member at discharge. Patient had new medications called in by MD's office and not on discharge. Patient left via wheelchair, and in private vehicle.
--- NOTE | 2022-08-28 13:58 | NUR ---
Student documentation: I have reviewed and agree with all interventions, assessments performed and documented by Florencia Sol student nurse by Taras Garcia RN instructor.
== END 2022-08-28 12:02 | disposition home or self-care (01) | DRG 330 ==
LOC: PAS IN 05:24 → SUR 3N 15:50
PROVIDERS: ADMIT Surgery; ATTEND Surgery
PROC: 0T9880Z Drainage of Bilateral Ureters with Drainage Device, Via Natural or Artificial Opening Endoscopic (ICD-10-PCS; 2022-08-25)
PROC: 0DTN4ZZ Resection of Sigmoid Colon, Percutaneous Endoscopic Approach (ICD-10-PCS; principal; 2022-08-26 07:42)
DX: C18.7 Malignant neoplasm of sigmoid colon (principal); K63.3 Ulcer of intestine; D12.4 Benign neoplasm of descending colon; I10 Essential (primary) hypertension; K21.00 Gastro-esophageal reflux disease with esophagitis, without bleeding; Z80.0 Family history of malignant neoplasm of digestive organs; Z87.891 Personal history of nicotine dependence
CPT/HCPCS: Z7506; Z7508; 36415; 76000; 80053; 81003; 82948; 85007; 85008; 85025; A4215; A4615; A4618; A5200; A6253; A6407; A6449; A7000; C1758; C1769; C9290; G0378; J0131; J0694; J0780; J1100; J2175; J2250; J2270; J2405; J2704; J2710; J3010; J3490; J7030; J7120; Q9967; S0020